=== PATIENT | male | born 1990 | race Caucasian/White ===

== ENCOUNTER 2016-12-09 19:10 | Emergency (ER) | payer OTHER ==
--- NOTE | 2016-12-09 21:08 | DIAGNOSTIC IMAGING REPORT ---
PROCEDURE: XR CHEST 2 VIEW INDICATION: CHEST PAIN TECHNIQUE: PA and lateral views. COMPARISON: None. FINDINGS: Allowing for overlying wires and electrodes, lungs are clear. Heart and mediastinum are normal. Thorax is normal. IMPRESSION: 1. Negative chest.
--- NOTE | 2016-12-09 21:15 | ED ORDER SUMMARY ---
..... Patient: DANIEL CALVILLO OrderSheet [facility] VisitID: [id number] [place] [address] 25y, M Registration Date/Time: 12/09/2016 ORDER SHEET Weight: 92.9 kg (stated) Allergies: No Known Drug Allergy GENERAL ORDERS: Cardiac Panel Stat (19:55 12/09/2016 Levi R.NIra per protocol) (Ack 19:58 LTapper) EKG - ER (done at 19:23) Stat (20:41 12/09/2016 Abeba Mccray) (Ack 20:58 LTapper) (21:01 HSoule) Chest 2V Urgent (20:41 12/09/2016 Abeba Mccray) (20:47 HSoule) MEDICATION ORDERS: Toradol IM 60 mg (NOW) (21:24 12/09/2016 Abeba Mccray) (Cancelled: Duplicate Order21:25 Abeba Mccray) IV FLUIDS: Toradol IV 30 mg (NOW) (21:25 12/09/2016 Abeba Mccray) (21:28 Levi R.NIra) ORDER SHEET NOTES: [Electronically signed by Smith Jones R.N. (22:12/09/2016)] [Electronically signed by Duglas Forte Dr. (11:14 12/12/2016)] [Electronically locked/signed by Smith Jones R.N. (22:12/09/2016)]
--- NOTE | 2016-12-09 21:15 | ED CLINICAL REPORT ---
Clinical Report - Physicians/Mid Levels [facility] [address] [place] [address] 12/09/2016 19:11 Patient: DANIEL CALVILLO Arrived- By private vehicle. Historian- patient. HISTORY OF PRESENT ILLNESS Chief Complaint: CHEST PAIN. This started today and is still present but is improving. It was gradual in onset and has been constant but is not gone now. Onset during rest. It is described as dull and it is described as located in the left chest area. No radiation. At its maximum, severity described as moderate. When seen in the E.D., severity described as mild. Modifying factors- (Patient reports that this is nonexertional.). Not worsened by anything. Not relieved by anything. The patient has had nausea. No vomiting, difficulty breathing or diaphoresis. (Patient reports no leg swelling,recent trauma,recent surgery or hemoptysis). No additional chest pain. Similar symptoms previously: None. Recent medical care: Not recently seen/assessed. REVIEW OF SYSTEMS No fever, chills, pedal edema or calf pain. All systems otherwise negative, except as recorded above. PAST HISTORY See nurses notes. Denies the following risk factors for DVT/PE - history of DVT and pulmonary embolism, recent surgery, recent OK and congestive heart failure. Denies the following risk factors for DVT/PE - cancer, clotting disorder, estrogens, obesity and immobility. Denies the following risk factors for DVT/PE - advanced in age and vena cava filter. SOCIAL HISTORY Never smoker. No alcohol use or drug use. Is a local resident. FAMILY HISTORY History of heart disease (known family history of early heart disease or Sudden .). ADDITIONAL NOTES The nursing notes have been reviewed. PHYSICAL EXAM Vital Signs: 12/09/2016 19:21 BP: 144/76. HR: 84. RR: 18. O2 saturation: 100%. Temp: 98.3 F. Pain level now: 7/10. Blood pressure normal. Oxygen saturation normal. Appearance: Alert. Oriented X3. No acute distress. No marfanoid habitus. (Polite, cooperative, well-developed, well-groomed.). Eyes: Pupils equal, round and reactive to light. Eyes normal inspection. ENT: Ears normal. Nose normal. Pharynx normal. Neck: Normal inspection. Neck supple. CVS: Normal heart rate and rhythm. Heart sounds normal. Pulses normal. Respiratory: No respiratory distress. Breath sounds normal. Chest nontender. No rales, rhonchi or wheezes. Abdomen: Soft and nontender. Bowel sounds normal. Back: Normal external inspection. (no midline tenderness.Crepitus. No overlying skin changes.). Skin: Skin warm and dry. Normal skin color. No rash. Normal skin turgor. Extremities: Extremities exhibit normal ROM. No lower extremity edema. No calf tenderness. No lower extremity edema. Neuro: Oriented X 3. No motor deficit. No sensory deficit. LABS, X-RAYS, AND EKG EKG: No acute ischemia. Normal sinus rhythm. Rate: 90. Normal P waves. Normal ELEUTERIO. Normal QRS complex. Normal axis. Normal ST and T waves, QT and QTc. Non-specific T wave flattening in lead III and aVF. No ST elevation or depression. Prior EKG unavailable. The study has been interpreted contemporaneously by me. The study has been independently viewed by me. The EKG appears to be a good tracing. Chest X-ray: (PROCEDURE: XR CHEST 2 VIEW INDICATION: CHEST PAIN TECHNIQUE: PA and lateral views. COMPARISON: None. FINDINGS: Allowing for overlying wires and electrodes, lungs are clear. Heart and mediastinum are normal. Thorax is normal. IMPRESSION: 1. Negative chest.). Views: PA and lateral. Technique: good. The X-rays were independently viewed by me and interpreted by the radiologist. The X-rays were discussed with the radiologist (via pacs). Laboratory Tests: CBC w Diff: (MATTHIEU: 12/09/2016 19:20) ( MsgRcvd 12/09/2016 20:13) Final results Test Result Flag Units (Reference) WHITE BLOOD COUNT 8.8 K/uL (4.5-11.5) RED BLOOD COUNT 5.45 M/uL (4.50-5.90) HEMOGLOBIN 15.3 gm/dL (13.5-17.5) HEMATOCRIT 46.2 % (41.0-53.0) MEAN CELL VOLUME 85 fL (80-100) MEAN CORPUSCULAR HGB 28 pg (26-34) MEAN CORPUSCULAR HGB CONC 33 g/dL (31-37) RED CELL DISTRIBUTION WIDTH 13.3 % (11.6-14.8) PLATELET COUNT 393 K/uL (150-400) NEUTROPHIL % 59.8 % (50-75) LYMPH % 29.3 % (25-40) MONO % 7.4 % (3-14) EOSINOPHIL % 3.2 % (0-4) BASOPHIL % 0.3 % (0-2) CHEM 13 PANEL: (MATTHIEU: 12/09/2016 19:20) ( MsgRcvd 12/09/2016 20:17) Final results Test Result Flag Units (Reference) GLUCOSE 144 H mg/dL (70-110) BUN 16 mg/dL (7-18) CREATININE 1.3 mg/dL (0.6-1.3) Estimated GFR >60 mL/min Estimated GFR- >60 mL/min Note: Persistent reduction over 3 months in eGFR<60 mL/min/1.73 m2 defines CKD. Patients with eGFR values>=60 mL/min/1.73 m2 may also have CKD if evidence ofpersistent proteinuria. Additional information may be foundat www.kidney.org. SODIUM 141 mmol/L (136-145) POTASSIUM 4.5 mmol/L (3.5-5.1) CHLORIDE 104 mmol/L (98-107) CARBON DIOXIDE 28 mmol/L (21-32) CALCIUM 8.9 mg/dL (8.5-10.1) TOTAL PROTEIN 7.2 g/dL (6.4-8.2) ALBUMIN 3.9 g/dL (3.3-5.0) BILIRUBIN, TOTAL 0.3 mg/dL (0.0-1.0) ALKALINE PHOSPHATASE 74 U/L (46-116) AST (SGOT) 19 U/L (15-37) ALT (SGPT) 46 U/L (12-78) MAGNESIUM 2.1 mg/dL (1.8-2.4) CPK 195 U/L (24-260) TROPONIN I <0.05 L ng/mL (0.00-1.5) TROPONIN REFERENCE RANGE:<0.1 NEGATIVE0.1-1.5 INDETERMINANT>1.5 POSITIVE . PROGRESS AND PROCEDURES Course of Care: The patient is a pleasant 25-year-old male presenting for evaluation of chest pain. At this time, the likelihood of acute myocardial infarction is extremely low given the patient's age. He also does not have risk factors for acute cooa aryi Laboratory studies have been ordered from triage. Unable to cancel the laboratory studies and IV is started and placed. The patient will be evaluated with EKG to check for any signs of conduction abnormalities such as Brugada syndrome. Also evaluated with chest x-ray for evaluation of any acute cardiopulmonary disease such as pneumothorax or pneumonia. The patient is agreeable to the treatment plan. Patient is resting in bed and in no acute distress. Symptoms have improved since onset. Workup does not show any acute abnormalities. EKG, chest x-ray, laboratory studies do not show any signs of acute pathology. Do not feel patient needs to be admitted to the hospital require further emergency department evaluation or consultation. Patient is PE RC negative. Do not feel patient needs further evaluation for pulmonary embolism. Patient also does not have any signs of marfanoid habitus. Do not fill patient hasaortic dissection. Discussed with patient workup, diagnosis, home care, follow-up, and return precautions. All questions answered. The patient expressed understanding of these instructions and was agreeable to them. CLINICAL IMPRESSION Chest pain characterized as "tightness" .12 lead EKG performed. (acute left sided). INSTRUCTIONS Warnings: GENERAL WARNINGS: Return or contact your physician immediately if your condition worsens or changes unexpectedly, if not improving as expected, or if other problems arise. SPECIFICALLY, return if you develop chest, neck, jaw, shoulder, arm, or back pain, difficulty breathing, a fluttering sensation in your chest, lightheadedness, fainting, excessive fatigue, or sudden sweating. Your Current Medications: CONTINUE TAKING THE FOLLOWING MEDICATIONS: BuPROPion HCl Oral. CloNIDine HCl ER Oral. Methylphenidate HCl Oral. Prescription Medications: Motrin 600 mg tablets: take 1 tablet orally every 6 hours as needed for pain, stiffness or swelling. Dispense thirty (30). No refill. Substitution is permissible. Follow-up: Return to the emergency department as needed. Follow up with your doctor in three days. Reason for referral: recheck today's concerns. Summary of care provided to patient via paper. Screening today revealed the patient's blood pressure to be in the normal range. The patient should follow up with a primary care provider for blood pressure management. Understanding of the discharge instructions verbalized by patient. (Electronically signed by Duglas Forte Dr. 12/12/2016 11:14)
--- NOTE | 2016-12-09 21:15 | ED NURSING NOTES ---
Clinical Report - Nurses [facility] [address] [place] [address] 12/09/2016 19:11 Patient: DANIEL CALVILLO TRIAGE Triage time 19:Dec 09 2016. Acuity: LEVEL 3. Chief Complaint: CHEST PAIN and (Pain radiating into left back). SEPSIS SCREEN: Sepsis Screen: negative. Negative (no infection suspected/documented). --19:21 Jodee Andersen 19:21 12/09/16. BP: 144/76. HR: 84. RR: 18. O2 saturation: 100% on room air. Temp: 98.3 F (oral). Pain level now: 05/20. --19:23 Jodee Andersen. Weight: 92.9 kg stated. Height/Length: 74 inches Per Patient. BMI: 26.3. --19:18 Jodee Andersen. Medications BuPROPion HCl Oral. CloNIDine HCl ER Oral. Methylphenidate HCl Oral. --19:19 Jodee Andersen. Allergies No Known Drug Allergy. --19:19 Jodee Andersen. History Arrived by private vehicle. Historian: patient. Accompanied by friend. Primary physician (william). This started just prior to arrival. ( Patient states that he began having chest pain on his left side into his back about one hour ago. He states that he felt it may be indigestion but it felt different than heartburn.). He has had nausea. No difficulty breathing. Treatment SENIOR SYSTEMS ANALYST: None. PAST MEDICAL HX: Immunizations: up-to-date. SOCIAL HX: Smoker- current status unknown (Previously chewed tobacco). No alcohol use or drug use. No infectious disease exposure. ABUSE ASSESSMENT: No report of abuse. FALL RISK ASSESSMENT: Fall risk assessment completed. No fall risk identified. NUTRITIONAL RISK ASSESSMENT: The nutritional risk assessment revealed no deficiencies. FUNCTIONAL ASSESSMENT: Functional assessment: no impairments noted. LEARNING NEEDS ASSESSMENT: The learning needs assessment revealed no barriers. SKIN INTEGRITY ASSESSMENT: Skin integrity risk assessment completed. No skin integrity risk identified. --19:21 Jodee Andersen. PROBLEMS: Head Injury. Anxiety Reaction. Asthma. ADHD - Attention Deficit Hyperactivity Disorder. --19:19 Jodee Andersen. ADDITIONAL SURGERIES: Nasal septoplasty. --19:19 Jodee Andersen. Interventions ID band on patient. To treatment room. --19:21 Jodee Andersen. PHYSICAL ASSESSMENT Patient gowned. GENERAL / NEURO / PSYCH: Alert. Oriented X 4. Appears in no acute distress. HEENT: Mucous membranes are pink. RESPIRATORY: Respirations not labored. CVS: Normal sinus rhythm noted. SKIN: Skin is warm and dry. --19:23 Jodee Andersen. NURSING PROGRESS NOTES 19:19 12/09/2016 Site #1 started via IV in the left antecubital space with an 18g angiocath, with aseptic technique and good blood return; one attempt. Blood drawn: rainbow set. Labeled in the presence of the patient and sent to the lab. Saline lock flushed with 10 mL saline. --19:24 Jodee Andersen 19:24 12/09/16. chief passenger ship steward/stewardess, pulse oximeter and NIBP monitor placed on patient; monitor alarms on. Patient gowned. Reassurance given to the patient. Two patient identifiers checked. Call light placed in reach. Side rails up x 1. Bed placed in lowest position. Brakes of bed on. Patient ready for evaluation- chart flagged and ED physician notified. --19:24 Jodee Andersen EKG time: (:Dec 09 2016). --19:24 Jodee Andersen ( Pt resting in bed denies needs at this time care resumed from [place]. Call light in reach pt in sinus rhytme). --19:47 Smith Jones R.N. 21:27 12/09/2016 Toradol IVP 30 mg given over 2 minute(s) via site #1. Allergies verified and confirmed 5 rights. IV patency established. IV site checked: no pain, redness, or swelling. IV flushed thoroughly pre- and post-medication administration. IVP given by RN. --21:28 Smith Jones R.N. DISPOSITION / DISCHARGE 21:34 12/09/2016 Site #1 removed upon discharge. Pressure dressing applied. --21:35 Smith Jones R.N. Departure time: 21:35 Dec 09 2016. No learning barriers present. Discharge instructions provided and reviewed with the patient. Reviewed medication(s) information. Patient verbalized understanding. Written instructions provided in Russian. The patient was discharged by the physician. He was discharged home and accompanied by media sales executive. He left the Emergency Department ambulatory and via private vehicle. Historical Manuscripts Curator driving. ( Pt ambulated on discharge steady on his feet pt verbalized understanding of discharge and follow up). --21:36 Smith Jones R.N. 21:34 12/09/16. BP: 116/90. HR: 88. RR: 18. O2 saturation: 100%. Temp: 98.3 F. Pain level now 5/10. --21:36 Smith Jones R.N. Locked/Released at 12/09/2016 22:25 by Smith Jones R.N.
--- NOTE | 2016-12-09 21:15 | ED ORDER SUMMARY ---
..... Patient: DANIEL CALVILLO OrderSheet [facility] VisitID: [id number] [place] [address] 25y, M Registration Date/Time: 12/09/2016 ORDER SHEET Weight: 92.9 kg (stated) Allergies: No Known Drug Allergy GENERAL ORDERS: Cardiac Panel Stat (19:55 12/09/2016 Levi R.NIra per protocol) (Ack 19:58 LTapper) EKG - ER (done at 19:23) Stat (20:41 12/09/2016 Abeba Mccray) (Ack 20:58 LTapper) (21:01 HSoule) Chest 2V Urgent (20:41 12/09/2016 Abeba Mccray) (20:47 HSoule) MEDICATION ORDERS: Toradol IM 60 mg (NOW) (21:24 12/09/2016 Abeba Mccray) (Cancelled: Duplicate Order21:25 Abeba Mccray) IV FLUIDS: Toradol IV 30 mg (NOW) (21:25 12/09/2016 Abeba Mccray) (21:28 Levi R.NIra) ORDER SHEET NOTES: [Electronically signed by Smith Jones R.N. (22:12/09/2016)] [Electronically signed by Duglas Forte Dr. (11:14 12/12/2016)] [Electronically locked/signed by Smith Jones R.N. (22:12/09/2016)]
--- NOTE | 2016-12-09 21:15 | ED NURSING NOTES ---
Clinical Report - Nurses [facility] [address] [place] [address] 12/09/2016 19:11 Patient: DANIEL CALVILLO TRIAGE Triage time 19:Dec 09 2016. Acuity: LEVEL 3. Chief Complaint: CHEST PAIN and (Pain radiating into left back). SEPSIS SCREEN: Sepsis Screen: negative. Negative (no infection suspected/documented). --19:21 Jodee Andersen 19:21 12/09/16. BP: 144/76. HR: 84. RR: 18. O2 saturation: 100% on room air. Temp: 98.3 F (oral). Pain level now: 05/20. --19:23 Jodee Andersen. Weight: 92.9 kg stated. Height/Length: 74 inches Per Patient. BMI: 26.3. --19:18 Jodee Andersen. Medications BuPROPion HCl Oral. CloNIDine HCl ER Oral. Methylphenidate HCl Oral. --19:19 Jodee Andersen. Allergies No Known Drug Allergy. --19:19 Jodee Andersen. History Arrived by private vehicle. Historian: patient. Accompanied by friend. Primary physician (william). This started just prior to arrival. ( Patient states that he began having chest pain on his left side into his back about one hour ago. He states that he felt it may be indigestion but it felt different than heartburn.). He has had nausea. No difficulty breathing. Treatment QUALITY WORKER: None. PAST MEDICAL HX: Immunizations: up-to-date. SOCIAL HX: Smoker- current status unknown (Previously chewed tobacco). No alcohol use or drug use. No infectious disease exposure. ABUSE ASSESSMENT: No report of abuse. FALL RISK ASSESSMENT: Fall risk assessment completed. No fall risk identified. NUTRITIONAL RISK ASSESSMENT: The nutritional risk assessment revealed no deficiencies. FUNCTIONAL ASSESSMENT: Functional assessment: no impairments noted. LEARNING NEEDS ASSESSMENT: The learning needs assessment revealed no barriers. SKIN INTEGRITY ASSESSMENT: Skin integrity risk assessment completed. No skin integrity risk identified. --19:21 Jodee Andersen. PROBLEMS: Head Injury. Anxiety Reaction. Asthma. ADHD - Attention Deficit Hyperactivity Disorder. --19:19 Jodee Andersen. ADDITIONAL SURGERIES: Nasal septoplasty. --19:19 Jodee Andersen. Interventions ID band on patient. To treatment room. --19:21 Jodee Andersen. PHYSICAL ASSESSMENT Patient gowned. GENERAL / NEURO / PSYCH: Alert. Oriented X 4. Appears in no acute distress. HEENT: Mucous membranes are pink. RESPIRATORY: Respirations not labored. CVS: Normal sinus rhythm noted. SKIN: Skin is warm and dry. --19:23 Jodee Andersen. NURSING PROGRESS NOTES 19:19 12/09/2016 Site #1 started via IV in the left antecubital space with an 18g angiocath, with aseptic technique and good blood return; one attempt. Blood drawn: rainbow set. Labeled in the presence of the patient and sent to the lab. Saline lock flushed with 10 mL saline. --19:24 Jodee Andersen 19:24 12/09/16. vehicle monitor technician, pulse oximeter and NIBP monitor placed on patient; monitor alarms on. Patient gowned. Reassurance given to the patient. Two patient identifiers checked. Call light placed in reach. Side rails up x 1. Bed placed in lowest position. Brakes of bed on. Patient ready for evaluation- chart flagged and ED physician notified. --19:24 Jodee Andersen EKG time: (:Dec 09 2016). --19:24 Jodee Andersen ( Pt resting in bed denies needs at this time care resumed from [place]. Call light in reach pt in sinus rhytme). --19:47 Smith Jones R.N. 21:27 12/09/2016 Toradol IVP 30 mg given over 2 minute(s) via site #1. Allergies verified and confirmed 5 rights. IV patency established. IV site checked: no pain, redness, or swelling. IV flushed thoroughly pre- and post-medication administration. IVP given by RN. --21:28 Smith Jones R.N. DISPOSITION / DISCHARGE 21:34 12/09/2016 Site #1 removed upon discharge. Pressure dressing applied. --21:35 Smith Jones R.N. Departure time: 21:35 Dec 09 2016. No learning barriers present. Discharge instructions provided and reviewed with the patient. Reviewed medication(s) information. Patient verbalized understanding. Written instructions provided in Egyptian. The patient was discharged by the physician. He was discharged home and accompanied by clothespin drier operator. He left the Emergency Department ambulatory and via private vehicle. [place] driving. ( Pt ambulated on discharge steady on his feet pt verbalized understanding of discharge and follow up). --21:36 Smith Jones R.N. 21:34 12/09/16. BP: 116/90. HR: 88. RR: 18. O2 saturation: 100%. Temp: 98.3 F. Pain level now 5/10. --21:36 Smith Jones R.N. Locked/Released at 12/09/2016 22:25 by Smith Jones R.N.
--- NOTE | 2016-12-12 11:15 | ED MAR SUMMARY ---
..... Medication Administration Record [facility] [address] [place] [address] Patient: DANIEL CALVILLO Visit ID: [id number] 25y, M Weight: 92.9 kg Height/Length: 74 in BMI: 26.3 ALLERGIES: No Known Drug Allergy Given 21:27 12/09/2016 Smith Jones R.N. Medication Administered: TORADOL [IVP], Dose: 30 mg IVP over 2 minute(s), Site: #1 left AC. Medication Ordered: Toradol IV 30 mg (NOW).
--- NOTE | 2016-12-12 11:15 | ED MAR SUMMARY ---
..... Medication Administration Record [facility] [address] [place] [address] Patient: DANIEL CALVILLO Visit ID: [id number] 25y, M Weight: 92.9 kg Height/Length: 74 in BMI: 26.3 ALLERGIES: No Known Drug Allergy Given 21:27 12/09/2016 Smith Jones R.N. Medication Administered: TORADOL [IVP], Dose: 30 mg IVP over 2 minute(s), Site: #1 left AC. Medication Ordered: Toradol IV 30 mg (NOW).
--- NOTE | 2016-12-12 11:15 | ED MED RECONCILIATION SUMMARY ---
Patient: DANIEL CALVILLO Medication Reconciliation Report [facility] VisitID: [id number] [place] [address] 25y, M Registration Date/Time: 12/09/2016 Weight: 92.9 kg Height/Length: 74 in. BMI: 26.3 ALLERGIES: No Known Drug Allergy The patient's Home Medications are listed below: CONTINUE TAKING THE FOLLOWING MEDICATIONS: BuPROPion HCl Oral CloNIDine HCl ER Oral Methylphenidate HCl Oral The source(s) of the original Home Medication information: Not obtained. The following Medications were given to the patient in the Emergency Department: Toradol [IVP] IVP 30 mg, administered: 12/09/2016 9:27:00 PM The following Medications were prescribed to the patient: Motrin 600 mg tablets: take 1 tablet orally every 6 hours as needed for pain, stiffness or swelling. Dispense thirty (30). No refill. Substitution is permissible. -- Duglas Forte Dr.
--- NOTE | 2016-12-12 11:15 | ED DISCHARGE INSTRUCTIONS ---
Patient: DANIEL CALVILLO General Instructions [facility] VisitID: [id number] [place] [address] 25y, M Registration Date/Time: 12/09/2016 Chest pain characterized as "tightness" .12 lead EKG performed. (acute left sided). INSTRUCTIONS Warnings: GENERAL WARNINGS: Return or contact your physician immediately if your condition worsens or changes unexpectedly, if not improving as expected, or if other problems arise. SPECIFICALLY, return if you develop chest, neck, jaw, shoulder, arm, or back pain, difficulty breathing, a fluttering sensation in your chest, lightheadedness, fainting, excessive fatigue, or sudden sweating. Your Current Medications: CONTINUE TAKING THE FOLLOWING MEDICATIONS: BuPROPion HCl Oral. CloNIDine HCl ER Oral. Methylphenidate HCl Oral. Prescription Medications: Motrin 600 mg tablets: take 1 tablet orally every 6 hours as needed for pain, stiffness or swelling. Dispense thirty (30). No refill. Substitution is permissible. Follow-up: Return to the emergency department as needed. Follow up with your doctor in three days. Reason for referral: recheck today's concerns. Summary of care provided to patient via paper. Screening today revealed the patient's blood pressure to be in the normal range. The patient should follow up with a primary care provider for blood pressure management. Understanding of the discharge instructions verbalized by patient. ADDITIONAL INFORMATION Chest Pain, Uncertain Cause Chest pain can happen for a number of reasons. Sometimes the cause can not be determined. If yourcondition does not seem serious, and your pain does not appear to be coming from your heart, your doctor may recommend watching it closely. Sometimes the signs of a serious problem take more time to appear. Therefore, watch for the warning signs listed below. Home care After your visit, follow these recommendations: Rest today and avoid strenuous activity. Take any prescribed medicine as directed. Follow-up care Follow up with your doctor or this facility as instructed or if you do not start to feel better within 24 hours. Call 911 Get immediate medical attention if any of the following occur: A change in the type of pain: if it feels different, becomes more severe, lasts longer, or begins to spread into your shoulder, arm, neck, jaw or back Shortness of breath or increased pain with breathing Weakness, dizziness, or fainting Rapid heart beat Get prompt medical attention Call your doctor right away if any of the following occur: Cough with dark colored sputum (phlegm) or blood Fever of 100.4F(38C) or higher, or as directed by your health care provider Swelling, pain or redness in one leg Ibuprofen Oral tablet What is this medicine? IBUPROFEN (eye BYOO proe fen) is a non-steroidal anti-inflammatory drug (NSAID). It is used for dental pain, fever, headaches or migraines, osteoarthritis, rheumatoid arthritis, or painful monthly periods. It can also relieve minor aches and pains caused by a cold, flu, or sore throat. How should I use this medicine? Take this medicine by mouth with a glass of water. Follow the directions on the prescription label. Take this medicine with food if your stomach gets upset. Try to not lie down for at least 10 minutes after you take the medicine. Take your medicine at regular intervals. Do not take your medicine more often than directed. A special MedGuide will be given to you by the pharmacist with each prescription and refill. Be sure to read this information carefully each time. Talk to your corporate operations compliance manager regarding the use of this medicine in children. Special care may be needed. What side effects may I notice from receiving this medicine? Side effects that you should report to your doctor or health laboratory animal caretaker as soon as possible: allergic reactions like skin rash, itching or hives, swelling of the face, lips, or tongue black or bloody stools, blood in the urine or in vomit breathing problems changes in vision chest pain general ill feeling or flu-like symptoms nausea or vomiting redness, blistering, peeling or loosening of the skin, including inside the mouth slurred speech or weakness on one side of the body stomach pain unexplained weight gain or swelling unusually weak or tired yellowing of eyes or skin Side effects that usually do not require medical attention (report to your doctor or health laboratory animal caretaker if they continue or are bothersome): constipation or diarrhea dizziness gas or heartburn stomach upset What may interact with this medicine? Do not take this medicine with any of the following medications: cidofovir ketorolac methotrexate pemetrexed This medicine may also interact with the following medications: alcohol aspirin diuretics lithium other drugs for inflammation like prednisone warfarin What if I miss a dose? If you miss a dose, take it as soon as you can. If it is almost time for your next dose, take only that dose. Do not take double or extra doses. Where should I keep my medicine? Keep out of the reach of children. Store at room temperature between 15 and 30 degrees C (59 and 86 degrees F). Keep container tightly closed. Throw away any unused medicine after the expiration date. What should I tell my health care provider before I take this medicine? They need to know if you have any of these conditions: asthma cigarette smoker drink more than 3 alcohol containing drinks a day heart disease or circulation problems such as heart failure or leg edema (fluid retention) high blood pressure kidney disease liver disease stomach bleeding or ulcers an unusual or allergic reaction to ibuprofen, aspirin, other NSAIDS, other medicines, foods, dyes, or preservatives or trying to get breast-feeding What should I watch for while using this medicine? Tell your doctor or healthcare professional if your symptoms do not start to get better or if they get worse. This medicine does not prevent heart attack or stroke. In fact, this medicine may increase the chance of a heart attack or stroke. The chance may increase with longer use of this medicine and in people who have heart disease. If you take aspirin to prevent heart attack or stroke, talk with your doctor or health laboratory animal caretaker. Do not take other medicines that contain aspirin, ibuprofen, or naproxen with this medicine. Side effects such as stomach upset, nausea, or ulcers may be more likely to occur. Many medicines available without a prescription should not be taken with this medicine. This medicine can cause ulcers and bleeding in the stomach and intestines at any time during treatment. Ulcers and bleeding can happen without warning symptoms and can cause . To reduce your risk, do not smoke cigarettes or drink alcohol while you are taking this medicine. You may get drowsy or dizzy. Do not drive, use machinery, or do anything that needs mental alertness until you know how this medicine affects you. Do not stand or sit up quickly, especially if you are an older patient. This reduces the risk of dizzy or fainting spells. This medicine can cause you to bleed more easily. Try to avoid damage to your teeth and gums when you brush or floss your teeth. You have been given the following additional information: Chest Pain, Uncertain Cause Ibuprofen Oral tablet (Electronically signed by Duglas Forte Dr. 12/12/2016 11:14)
--- NOTE | 2016-12-12 11:15 | ED MED RECONCILIATION SUMMARY ---
Patient: DANIEL CALVILLO Medication Reconciliation Report [facility] VisitID: [id number] [place] [address] 25y, M Registration Date/Time: 12/09/2016 Weight: 92.9 kg Height/Length: 74 in. BMI: 26.3 ALLERGIES: No Known Drug Allergy The patient's Home Medications are listed below: CONTINUE TAKING THE FOLLOWING MEDICATIONS: BuPROPion HCl Oral CloNIDine HCl ER Oral Methylphenidate HCl Oral The source(s) of the original Home Medication information: Not obtained. The following Medications were given to the patient in the Emergency Department: Toradol [IVP] IVP 30 mg, administered: 12/09/2016 9:27:00 PM The following Medications were prescribed to the patient: Motrin 600 mg tablets: take 1 tablet orally every 6 hours as needed for pain, stiffness or swelling. Dispense thirty (30). No refill. Substitution is permissible. -- Duglas Forte Dr.
== END 2016-12-09 21:32 | disposition home or self-care (01) ==
LOC: ED SRH 19:10
DX: R07.89 Other chest pain (principal); R11.0 Nausea
CPT/HCPCS: 90100; 90616; 92610; 92720; 95059